=== PATIENT | female | born 1990 | race Caucasian/White ===

== ENCOUNTER 2019-01-12 18:50 | Emergency (ER) | payer SELFPAY ==
[~2019-01-12] VITALS: Ht 167.6 cm; Wt 59.0 kg
--- NOTE | 2019-01-12 20:00 | NUR ---
PATIENT WAS TRIAGED BUT LEFT WITHOUT BEING SEEN BY ERMD. PATIENT WAS TAKEN HOME BY HER FRIEND.
== END 2019-01-12 20:00 | disposition left against medical advice (07) ==
LOC: ER 18:50
DX: Z53.21 Procedure and treatment not carried out due to patient leaving prior to being seen by health care provider (principal)
CPT/HCPCS: A4663